=== PATIENT | male | born 1960 | race Caucasian/White ===

== ENCOUNTER 2020-01-05 15:47 | Inpatient (IN) ==
[2020-01-08] MEDS ORDERED: Nitroglycerin 0.4 MG TAB.SUBL SL PRN (16:49)
[2020-01-08] MEDS ORDERED: *HR* OxyCODONE/APAP 10/325 TABLET PO PRN (16:49)
[2020-01-08] MEDS ORDERED: Dextrose Gel 15 GM/37.5 ML TUBE PO PRN ×2 (17:18)
[2020-01-08] MEDS ORDERED: *HR* Dextrose 50 % in Water (Vial) 50 ML VIAL IVP PRN (17:18)
[2020-01-08] MEDS ORDERED: D5% in Water 1,000 ML IVC PRN (17:18)
[2020-01-08] MEDS ORDERED: *HR* OxyCODONE Immed Rel 5 MG TABLET PO PRN (17:31)
[2020-01-08] MEDS: carvediloL 25 MG TABLET PO SCH (17:52)
[2020-01-08] MEDS: *HR* OxyCODONE Immed Rel 5 MG TABLET PO PRN ×2 (17:52→21:47)
[2020-01-08] MEDS: Insulin LISPRO 300 UNITS/3 ML VIAL SQ SCH ×2 (17:53→21:48)
[2020-01-08] MEDS ORDERED: Insulin DETEMIR 100 UNIT/ML per UNIT SQ ONE (21:00)
[2020-01-08] MEDS: Gabapentin 300 MG CAPSULE PO SCH (21:47)
[2020-01-09] MEDS: *HR* OxyCODONE Immed Rel 5 MG TABLET PO PRN ×5 (02:26→20:55)
[2020-01-09 05:14] LABS: Basophils % 0.4 %; Eosinophils # 0.5 K/mcL (0.0-0.6); Eosinophils % 5.7 %; Hematocrit 34.5 % (37.5-50.1); Hemoglobin 11.3 g/dL (12.9-16.9); Immature Granulocytes % 0.5 % (0-4); Lymphocytes # 1.5 K/mcL (0.6-4.6); Lymphocytes % 16.5 %; Mean Corpuscular HGB Conc 32.8 g/dL (31.6-35.5); Mean Corpuscular Hemoglobin 28.3 pg (28.0-33.3); Mean Corpuscular Volume 86.5 fL (83.0-100.0); Mean Platelet Volume 10.8 fL (9.4-12.4); Monocytes # 0.7 K/mcL (0.0-1.3); Monocytes % 7.9 %; Neutrophils # 6.3 K/mcL (1.6-8.9); Platelet Count 234 K/mcL (140-400); Red Blood Count 3.99 M/mcL (4.19-5.50); Red Cell Distribution Width 13.7 % (11.5-14.5); White Blood Count 9.1 K/mcL (4.3-11.1)
[2020-01-09 05:30] LABS: Albumin 3.2 g/dL (3.5-5.7); Albumin/Globulin Ratio 1.1 (1.1-2.2); Bilirubin,Total 0.6 mg/dL (0.3-1.0); Calcium 8.7 mg/dL (8.6-10.3); Magnesium 1.8 mg/dL (1.6-2.6); Potassium 3.9 mEq/L (3.5-5.1); Total Protein 6.2 g/dL (6.4-8.9)
[2020-01-09] MEDS: Gabapentin 300 MG CAPSULE PO SCH ×3 (08:09→20:54)
[2020-01-09] MEDS: carvediloL 25 MG TABLET PO SCH ×2 (08:09→17:01)
[2020-01-09] MEDS: Spironolactone 25 MG TABLET PO SCH (08:09)
[2020-01-09] MEDS: Isosorbide MONOnitrate (24 HR) 30 MG TAB.ER.24H PO SCH (08:09)
[2020-01-09] MEDS: cefTRIAXone 2,000 MG in Water for inj. (sterile) 20 ML IVP SCH (08:09)
[2020-01-09] MEDS: amLODIPine 5 MG TABLET PO SCH (08:09)
[2020-01-09] MEDS: Insulin LISPRO 300 UNITS/3 ML VIAL SQ SCH ×4 (08:11→20:57)
[2020-01-09] MEDS: *HR* Enoxaparin 40 MG/0.4 ML SYRINGE SQ SCH (08:11)
[2020-01-09] MEDS ORDERED: CEFTRIAXONE SODIUM 2 GM IV SCH (09:00)
[2020-01-09] MEDS: Insulin DETEMIR 100 UNIT/ML X5UNITS SQ SCH ×2 (09:32→20:56)
[2020-01-09] MEDS: Ondansetron 4 MG/2 ML VIAL IVP PRN (15:00)
[2020-01-10] MEDS: *HR* OxyCODONE Immed Rel 5 MG TABLET PO PRN ×4 (05:18→20:34)
[2020-01-10 05:30] LABS: Hematocrit 32.6 % (37.5-50.1); Hemoglobin 10.7 g/dL (12.9-16.9); Mean Corpuscular HGB Conc 32.8 g/dL (31.6-35.5); Mean Corpuscular Hemoglobin 28.6 pg (28.0-33.3); Mean Corpuscular Volume 87.2 fL (83.0-100.0); Mean Platelet Volume 10.7 fL (9.4-12.4); Platelet Count 245 K/mcL (140-400); Red Blood Count 3.74 M/mcL (4.19-5.50); Red Cell Distribution Width 13.7 % (11.5-14.5); White Blood Count 9.5 K/mcL (4.3-11.1)
[2020-01-10 05:48] LABS: Bilirubin,Total 0.5 mg/dL (0.3-1.0); Calcium 8.5 mg/dL (8.6-10.3); Potassium 4.1 mEq/L (3.5-5.1)
[2020-01-10] MEDS: Insulin LISPRO 300 UNITS/3 ML VIAL SQ SCH ×4 (10:13→20:01)
[2020-01-10] MEDS: Gabapentin 300 MG CAPSULE PO SCH ×3 (10:16→20:34)
[2020-01-10] MEDS: amLODIPine 5 MG TABLET PO SCH (10:16)
[2020-01-10] MEDS: carvediloL 25 MG TABLET PO SCH ×2 (10:17→17:44)
[2020-01-10] MEDS: Isosorbide MONOnitrate (24 HR) 30 MG TAB.ER.24H PO SCH (10:17)
[2020-01-10] MEDS: Spironolactone 25 MG TABLET PO SCH (10:17)
[2020-01-10] MEDS: *HR* Enoxaparin 40 MG/0.4 ML SYRINGE SQ SCH (10:18)
[2020-01-10] MEDS: Insulin DETEMIR 100 UNIT/ML X5UNITS SQ SCH ×2 (10:19→20:36)
[2020-01-10] MEDS: cefTRIAXone 2,000 MG in Water for inj. (sterile) 20 ML IVP SCH (10:20)
[2020-01-10] MEDS: Ondansetron 4 MG/2 ML VIAL IVP PRN (11:31)
[2020-01-11] MEDS: *HR* OxyCODONE Immed Rel 5 MG TABLET PO PRN ×4 (06:45→20:43)
[2020-01-11] MEDS: Insulin LISPRO 300 UNITS/3 ML VIAL SQ SCH ×4 (07:48→19:51)
[2020-01-11] MEDS: Gabapentin 300 MG CAPSULE PO SCH ×3 (11:56→20:05)
[2020-01-11] MEDS: Isosorbide MONOnitrate (24 HR) 30 MG TAB.ER.24H PO SCH (11:56)
[2020-01-11] MEDS: carvediloL 25 MG TABLET PO SCH ×2 (11:56→18:09)
[2020-01-11] MEDS: Spironolactone 25 MG TABLET PO SCH (11:56)
[2020-01-11] MEDS: amLODIPine 5 MG TABLET PO SCH (11:57)
[2020-01-11] MEDS: *HR* Enoxaparin 40 MG/0.4 ML SYRINGE SQ SCH (12:02)
[2020-01-11] MEDS: Insulin DETEMIR 100 UNIT/ML X5UNITS SQ SCH ×2 (12:04→20:05)
[2020-01-11] MEDS: cefTRIAXone 2,000 MG in Water for inj. (sterile) 20 ML IVP SCH (12:06)
[2020-01-12] MEDS: *HR* OxyCODONE Immed Rel 5 MG TABLET PO PRN ×2 (00:53→06:55)
[2020-01-12 07:45] VITALS: BP 136/69
[2020-01-12] MEDS: cefTRIAXone 2,000 MG in Water for inj. (sterile) 20 ML IVP SCH (08:06)
[2020-01-12] MEDS: Gabapentin 300 MG CAPSULE PO SCH (08:07)
[2020-01-12] MEDS: Spironolactone 25 MG TABLET PO SCH (08:07)
[2020-01-12] MEDS: amLODIPine 5 MG TABLET PO SCH (08:07)
[2020-01-12] MEDS: carvediloL 25 MG TABLET PO SCH (08:07)
[2020-01-12] MEDS: Isosorbide MONOnitrate (24 HR) 30 MG TAB.ER.24H PO SCH (08:08)
[2020-01-12] MEDS: Insulin LISPRO 300 UNITS/3 ML VIAL SQ SCH (08:10)
[2020-01-12] MEDS: *HR* Enoxaparin 40 MG/0.4 ML SYRINGE SQ SCH (08:17)
[2020-01-12] MEDS: Insulin DETEMIR 100 UNIT/ML X5UNITS SQ SCH (08:17)
== END 2020-01-12 11:00 | disposition home or self-care (01) | DRG 560 ==
LOC: INPGRE 01-08 16:17
PROVIDERS: ADMIT Family Medicine; ATTEND Family Medicine